=== PATIENT | female | born 1985 | race American Indian/Alaskan Native ===

== ENCOUNTER 2016-10-31 10:28 | Emergency (ER) | payer BC ==
[2016-10-31 11:05] VITALS: BP 140/69
[2016-10-31] MEDS ORDERED: ZOFRAN ODT PO ONE ×2 (11:19→12:01)
[2016-10-31 11:39] LABS: Hematocrit 40.2 % (30.3-42.9); Hemoglobin 12.6 gm/dl (10.1-14.3); Mean Corpuscular HGB Conc 31 % (30-34); Mean Corpuscular Volume 82 fl (79-97); Platelet Count 330 K/mm3 (140-440); Red Blood Count 4.89 M/mm3 (3.65-5.03); Red Cell Distribution Width 14.9 % (13.2-15.2); White Blood Count 11.7 K/mm3 (4.5-11.0)
[2016-10-31 11:45] LABS: Mean Corpuscular Hemoglobin 26 pg (28-32)
[2016-10-31 11:58] LABS: Anion Gap 18 mmol/L; BUN/Creatinine Ratio 24.44; Blood Urea Nitrogen 22 mg/dL (7-17); Calcium 8.8 mg/dL (8.4-10.2); Carbon Dioxide 21 mmol/L (22-30); Chloride 105.2 mmol/L (98-107); Glucose 173 mg/dL (65-100); Sodium 140 mmol/L (137-145)
[2016-10-31 12:05] LABS: Bacteria,Urine 1+ /HPF (Negative); Bilirubin,Urine NEG (Negative); Blood,Urine NEG (Negative); Ketones,Urine TR mg/dL (Negative); Leukocyte Esterase,Urine MOD (Negative); Mucus,Urine 3+ /HPF; Nitrite,Urine NEG (Negative); Urobilinogen,Urine < 2.0 mg/dL (<2.0)
--- NOTE | 2016-10-31 12:16 | Emergency Department Report ---
Chief Complaint: Abdominal Pain Stated Complaint: NAUSEA AND VOMITING - HPI History of Present Illness: 31F newly with nausea and abd pain - ROS Review of Systems: new - Exam Vital Signs: Vital Signs 10/31/16 11:00 Temperature 97.6 F Pulse Rate 61 Respiratory 16 Rate Blood Pressure 140/69 O2 Sat by Pulse 100 Oximetry Physical Exam: + suprapubic pain MSE screening note: Focused history and physical exam performed. Due to findings the following was ordered: MSE: nausea and abd pain - US, abd labs ED Disposition for MSE Condition: Stable Instructions: Abdominal Pain (ED)
[2016-10-31 12:25] LABS: Alanine Aminotransferase 15 units/L (7-56); Albumin 4.5 g/dL (3.9-5); Albumin/Globulin Ratio 1.8 %; Alkaline Phosphatase 46 units/L (35-129); Amylase 94 units/L (27-131); Lipase 21 units/L (13-60)
[2016-10-31 12:29] LABS: Bilirubin,Direct < 0.2 mg/dL (0-0.2)
[2016-10-31 12:53] LABS: Blastocytes % (Manual) 0 %; Diff Status Complete; Eosinophils % (Manual) 0 % (0.0-4.3); Hypochromasia 1+; Platelet Estimate Consistent w Auto
[2016-10-31 12:54] LABS: Ovalocytes 1+
--- NOTE | 2016-10-31 13:56 | Ultrasound Report ---
ULTRASOUND OB LESS THAN 14 WEEKS - TRANSABDOMINAL AND TRANSVAGINAL INDICATION: with severe abdominal pain. Serum beta-hCG of 2,376 units. COMPARISON: None similar at this institution. FINDINGS: Transabdominal and transvaginal pelvic sonography performed in this patient demonstrates a 9.1 x 3.2 x 4.1 cm anteverted uterus. No IUP with endometrial thickness of 8 mm towards the fundus as on endovaginal image 13. Approximately 4.8 x 2 cm heterogeneous, complex material expands the cervical canal as on endovaginal images 2-22, not significantly hypervascular. No significant pelvic free fluid. Right ovary is 2.8 x 1.7 x 1.8 cm while the left ovary 3.7 x 2.4 x 1.3 cm. CONCLUSION: 1. No sonographic evidence of a viable intrauterine gestation at this time. Complex, heterogeneous material though noted in the cervix, not excluded for retained products of conception, as described. Please correlate. 2. Both ovaries identified, as above. Clinical correlation with LMP and serial serum beta-hCG values suggested, as appropriate. Thank you for the opportunity to participate in this patient's care.
== END 2016-10-31 22:50 | disposition left against medical advice (07) ==
LOC: ED 10:28
DX: O21.9 Vomiting of pregnancy, unspecified (principal); O26.891 Other specified pregnancy related conditions, first trimester; R10.9 Unspecified abdominal pain; Z53.21 Procedure and treatment not carried out due to patient leaving prior to being seen by health care provider
CPT/HCPCS: 36415; 76801; 76817; 80048; 80074; 81001; 81025; 82150; 83690; 84702; 85007; 85025; 87086; Q0162